=== PATIENT | female | born 1990 | race Caucasian/White ===

== ENCOUNTER 2017-05-16 17:54 | Emergency (ER) | payer MEDICAID ==
[~2017-05-16] VITALS: Ht 152.4 cm; Wt 98.0 kg
[2017-05-16 18:11] VITALS: BP 121/74
--- NOTE | 2017-05-16 19:50 | NUR ---
To bed 4.
--- NOTE | 2017-05-16 19:50 | NUR ---
Pt states she came to ED for Physicians referral to medical group to have a abdominal hernia consultation. VSS. ER aware. Continue to monitor.
[2017-05-16 20:50] VITALS: BP 121/74
== END 2017-05-16 20:50 | disposition home or self-care (01) ==
LOC: MED 17:54
DX: K42.9 Umbilical hernia without obstruction or gangrene (principal)
CPT/HCPCS: 81025; 99283